=== PATIENT | female | born 1985 | race Caucasian/White ===

== ENCOUNTER 2016-10-09 14:03 | Outpatient (CLI) | payer OTHER ==
--- NOTE | 2016-10-09 15:27 | DIAGNOSTIC IMAGING REPORT ---
PROCEDURE: US COMPLETE PELVIC W/TRANSVAG INDICATION: PELVIC PAIN TECHNIQUE: Transabdominal and endovaginal hall scale and color Doppler sonographic images of the female pelvis were obtained. COMPARISON: None. FINDINGS: TRANSABDOMINAL SCANS: The uterus is of normal size 6.4 x 5.9 x 3 cm Kidneys are normal. TRANSVAGINAL SCANS: The uterus is anteverted. Myometrium is normal. The endometrium measures 8.3 mm. Right ovary is normal measuring 3.3 x 2 x 1.7 cm The left ovary is normal measuring 3.8 x 2.2 x 1.7 cm. Good flow was seen in both ovaries. There is a trace of fluid. In the lower uterine segment. IMPRESSION: 1. Normal uterus and ovaries and kidneys.
== END 2016-10-09 23:00 ==
LOC: US SRH 14:03
DX: N91.2 Amenorrhea, unspecified (principal); R10.2 Pelvic and perineal pain

== ENCOUNTER 2016-11-22 11:39 | Outpatient (CLI) | payer OTHER | END 2016-11-22 23:00 | LOC: LAB SRH 11:39 | DX: N91.1 Secondary amenorrhea (principal) | CPT/HCPCS: 90074; 90648; 90903; 90904; 90943; 91286; 92652; 92690; 93075; 93140; 93146 ==